=== PATIENT | male | born 1965 | race Caucasian/White ===

== ENCOUNTER 2017-11-28 15:38 | Outpatient (CLI) | payer BC ==
--- NOTE | 2017-11-28 15:56 | RAD ---
TWO VIEW CHEST: Comparison: None. History: Cough for three weeks. FINDINGS: Mild elevation of the right hemidiaphragm. There is no lobar consolidation. Cardiac silhouette is mil dly prominent. No significant vascular congestion. Osseous degenerative changes are mild in degree. IMPRESSION: No focal consolidation. POS: H
== END 2017-11-28 15:39 | disposition home or self-care (01) ==
LOC: SCSRAD 15:38
PROVIDERS: ATTEND Family Medicine
DX: R05 Cough (principal)
CPT/HCPCS: 71046

== ENCOUNTER 2022-05-06 09:08 | Outpatient (CLI) | payer BC | END 2022-05-06 09:09 | disposition home or self-care (01) | LOC: SCSRAD 09:08 | PROVIDERS: ATTEND Family Medicine | DX: Z86.16 Personal history of COVID-19 (principal) | CPT/HCPCS: 71046 ==